=== PATIENT | male | born 1960 | race Caucasian/White ===

== ENCOUNTER 2020-01-08 00:47 | Emergency (ER) | payer BC, SELFPAY ==
[2020-01-08 00:47] VITALS: BP 134/75; PULSE 59; RESP 18; TEMP 36.9; O2SAT 97; BMI 32.3
--- NOTE | 2020-01-08 00:56 | CTR_ITS ---
PROCEDURE INFORMATION: Exam: CT Cervical Spine Without Contrast Exam date and time: 01/08/2020 1:00 AM Age: 59 years old Clinical indication: Neck pain and other: Lt arm pain TECHNIQUE: Imaging protocol: Computed tomography images of the cervical spine without contrast. Radiation optimization: All CT scans at this facility use at least one of these dose optimization techniques: automated exposure control; mA and/or kV adjustment per patient size (includes targeted exams where dose is matched to clinical indication); or iterative reconstruction. COMPARISON: No relevant prior studies available. RADIATION DOSE METRICS: Total DLP (mGy-cm): 925.13 FINDINGS: Vertebrae: No acute fracture. Normal alignment. C2-C3: No disc protrusion, canal stenosis or neural foraminal narrowing. C3-C4: No disc protrusion or canal stenosis. Mild left neural foraminal narrowing is appreciated secondary to left uncovertebral hypertrophy. C4-C5: No disc protrusion, canal stenosis or neural foraminal narrowing. C5-C6: No disc protrusion, canal stenosis or neural foraminal narrowing. C6-C7: No disc protrusion, canal stenosis or neural foraminal narrowing. C7-T1: No disc protrusion, canal stenosis or neural foraminal narrowing. Soft tissues: Unremarkable. Lungs: Lung apices are normal. CT/CT cervical spin wo con* [id number] IMPRESSION: No cervical spine fracture. Mild left neural foraminal narrowing is present at C3-C4. Radiation Dose CTDIVOL = (mGy): DLP = 925.13 (mGy-cm)
--- NOTE | 2020-01-08 00:56 | XR_ITS ---
WS: [id number] Portable AP upright chest, 01/08/2020, 0108 hours. Clinical Data: TIA symptoms Comparison: None Findings: No nodules, masses or effusions are seen. The heart is enlarged. The pulmonary vascularity is not increased. No pneumonia or pneumothorax is seen. Monitor leads are on the chest wall. XR/XR chest 1V portable [id number] Impression: Cardiomegaly.
--- NOTE | 2020-01-08 00:56 | CTR_ITS ---
PROCEDURE INFORMATION: Exam: CT Head Without Contrast Exam date and time: 01/08/2020 1:00 AM Age: 59 years old Clinical indication: Weakness, extremity; Left; Additional info: Left arm numbness TECHNIQUE: Imaging protocol: Computed tomography of the head without contrast. Radiation optimization: All CT scans at this facility use at least one of these dose optimization techniques: automated exposure control; mA and/or kV adjustment per patient size (includes targeted exams where dose is matched to clinical indication); or iterative reconstruction. COMPARISON: CT head wo con* [id number] 08/28/2018 10:55 AM RADIATION DOSE METRICS: Total DLP (mGy-cm): 872.58 FINDINGS: Brain: Normal. No hemorrhage or CT evidence of acute infarction is seen. No mass effect. Ventricles: Normal. No ventriculomegaly. Bones/joints: Unremarkable. No acute fracture. Sinuses: Visualized sinuses are unremarkable. No fluid levels. Mastoid air cells: Visualized mastoid air cells are well aerated. Soft tissues: Unremarkable. CT/CT head wo con* [id number] IMPRESSION: No acute intracranial abnormality. Radiation Dose CTDIVOL = (mGy): DLP = 872.58 (mGy-cm)
--- NOTE | 2020-01-08 01:09 | W.ED.EXTPRO ---
HPI - Extremity Problem General: Chief complaint: Extremity Injury, Upper Stated complaint: ARM PAIN Time Seen by Provider: 01/08/20 00:48 Source: patient and EMS Mode of arrival: EMS Limitations: no limitations History of Present Illness: HPI Narrative: Octavio is a 59-year-old male who comes in with left arm pain and numbness and numbness across his forehead. Patient states he was getting ready to go to bed when he had the abrupt onset of pain that was sharp in nature coming from his left shoulder radiating down to his left elbow. It did not matter what he did with his arm the pain persisted. He then developed some tingling in his left hand and then tingling across his forehead. He took 3 baby aspirin and called EMS. Patient states that he had a TIA approximately 1 year ago. By the time he reached here to the hospital his left arm paresthesias and pain is gone and he states the tingling across both sides of his forehead is almost completely gone. He denies any weakness, speech disturbance, leg weakness or confusion. He is unaware of anything that made his symptoms better or worse while they were going on. He denies any other complaints or concerns. Patient does relate that he did have surgery on that shoulder for a biceps tendon reattachment. He will get pains in this area from time to time. Patient denies any chest pain or shortness of breath. Associated symptoms: Deny chest pain, fever(s) or rash Review of Systems Const: Denies: fever(s), chills, body aches, fatigue, malaise or diaphoresis Eyes: Denies: change in vision, blurry vision, photophobia, eye discomfort, eye discharge or eye redness ENMT: Denies: throat pain, odynophagia, hoarseness, swelling of lips/tongue, ear or mastoid pain, ear discharge, change in hearing or nasal discharge Card: Denies: chest pain, palpitations, irregular heart rhythm, edema, lightheadedness, syncope, pre-syncope, dyspnea on exertion or orthopnea Resp: Denies: dyspnea, productive cough, non-productive cough, wheezing, hemoptysis or chest congestion GI: Denies: abdominal pain, nausea, vomiting, hematemesis, coffee ground emesis, heartburn, diarrhea, constipation, GI cramping, hematochezia or melena : Denies: flank pain, dysuria, urinary frequency, urinary urgency or hematuria Musc: Reports: extremity pain; Denies: neck pain, back pain, extremity swelling, joint pain, joint swelling, joint redness, joint warmth or joint stiffness Skin/Breast: Denies: rash, pruritus, erythema or skin tenderness Neuro: Reports: numbness in extremities (Described as paresthesias); Denies: headache(s), weakness in extremities, sensory changes, lack of coordination, difficulty walking, dizziness, vertigo, confusion, Slurred speech present or seizure-like activity Reinier/Lymph: Denies: easy bruising, easy bleeding, petechiae, purpura or enlarged lymph nodes All/Imm: Denies: urticaria, throat swelling, tongue swelling, facial swelling or acute wheezing PFSH ED PFSH: Medical History Hypercholesteremia Hypertension Surgical History History of surgical removal of testicle S/P shoulder surgery With bicep reattachment, left Family History Other Cancer Myocardial infarction Social History Smoking and tobacco status: current every day smoker cigars Alcohol intake: unknown Physical Exam Const: COMMON NORMALS: no acute distress, patient oriented x3, no limitations, healthy appearing and well nourished GENERAL APPEARANCE: cooperative, well kempt and well developed HENMT: COMMON NORMALS: normocephalic, atraumatic, external ears normal, EAC's normal and Normal external nose present HEAD & SCALP: normal to inspection, normocephalic and atraumatic FACE & SINUS: normal facial exam and face symmetric NOSE: Normal external nose present and Normal nares present EXTERNAL EAR: Yes external ears normal EXTERNAL AUDITORY CANAL: EAC's normal MOUTH: Normal oral and palatal mucosa present, lip normal and tongue normal Eye: COMMON NORMALS: Equal, round and reactive pupils present and conjunctivae normal GENERAL EYE: appearance normal, both eyes and all related structures ALIGNMENT: Yes alignment normal PERIORBITAL: periorbital findings normal EYELID: eyelids normal CONJUNCTIVA: Yes conjunctivae normal SCLERA: sclerae normal PUPIL: Yes Equal, round and reactive pupils present Neck/C-Spine: COMMON NORMALS: full ROM, no lymphadenopathy, supple, no meningeal signs and no JVD GENERAL: Yes normal visual inspection and Yes trachea midline Chest: COMMONS NORMALS: normal inspection of the chest and normal palpation of entire chest wall Resp: COMMON NORMALS: normal respiratory effort, No retractions, No use of accessory muscles and clear to auscultation bilaterally EFFORT & INSPECTION: Yes able to speak in complete sentences and Yes symmetric chest movement AUSCULTATION: clear to auscultation bilaterally, no crackles, no rales, no rhonchi and no wheezes Cardio: COMMON NORMALS: no JVD, regular rate, regular rhythm, S1 normal heart sound present and S2 normal heart sound present RATE: regular rate RHYTHM: regular rhythm HEART SOUNDS: S1 normal heart sound present, S2 normal heart sound present, no click, no gallops, no murmurs, no rubs and abnormal split S2 GI: COMMON NORMALS: Soft to palpation and No hepatosplenomegaly present PALPATION: Yes Soft to palpation, No Tenderness to palpation present (GI), No Guarding due to palpation present (GI), No Rigid due to palpation, Yes No hepatosplenomegaly present, No Hernia present, No Palpable mass present and No Pulsatile mass present : COMMON NORMALS: Yes no CVA tenderness BLADDER/KIDNEY EXAM: Yes no CVA tenderness Back/Pelvis: COMMON NORMALS: no CVA tenderness, thoracic and lumbar spine normal to inspection, no thoracic nor lumbar tenderness and thoraco-lumbar ROM normal Extremity: COMMON NORMALS: normal to inspection, full ROM, capillary refill normal, no joint enlargement, no clubbing, cyanosis or edema and no calf tenderness Neuro: COMMON NORMALS: patient oriented x3, CN's II-XII intact bilaterally, moves all extremities, no focal motor deficits and no sensory deficits noted MENINGEAL SIGNS: Yes no meningeal signs SPEECH: speech normal Psych: COMMON NORMALS: mental status grossly normal, Normal thought process present, cooperative, normal affect, speech normal and activity/motor behavior normal APPEARANCE: Yes well kempt SPEECH: Yes normal speech THOUGHT PROCESS: Normal thought process present Skin: COMMON NORMALS: no rashes or lesions noted, turgor normal, no jaundice, no petechiae and no mottling GENERAL SKIN EXAM: no rashes or lesions noted and turgor normal Course ED course: 241 -I reviewed with the patient the results of all his CT scans and laboratory work. It is unclear at this time if this was a atypical TIA, cardiac type pain or musculoskeletal pain. Currently he states he only has a twinge of pain in the area below his left scapula. The patient declines to stay for cardiac rule out and further work-up for TIA causes. He does agree to follow-up with Dr. Betancourt as outpatient in their TIA clinic. I will go ahead and do a CTA of his head and neck while he is here to help expedite information gathering when he is evaluated there. Vital Signs: Vital signs: Vital Signs Temperature 98.0 F 01/08/20 03:16 Pulse Rate 54 L 01/08/20 03:16 Respiratory Rate 16 01/08/20 03:16 Blood Pressure 125/70 01/08/20 03:16 Pulse Oximetry 99 01/08/20 03:16 MDM - Extremity (Nontraumatic) MDM Narrative: Medical decision making narrative: Mr. Reyes is a 59-year-old male who comes in complaining of sharp left arm pain and tingling across his forehead. His symptoms resolved mostly prior to arrival here. They have completely resolved here in the ER. His NIH was 1 and then is 0 on repeat. I recommended and offered to keep the patient in the hospital as this was a difficult issue to discern as far as was this a cardiac symptom, a TIA or musculoskeletal complaint. I discussed with the patient at length the need to stay in the hospital for definitive care but he refused. He stated he had a started new job and wanted to get home and get back to his family as he needed to start this new job and training. I will set him up to follow-up in our TIA clinic through case management and also he wants to follow-up Dr. Valentin to discuss an outpatient stress test. Ultimately the patient understand he was a leaving against my advice and he was at risk of or severe permanent disability by doing so. The patient declines any further evaluation care at this time but did agree to take the Plavix increase his aspirin. The patient agrees to follow-up as directed or return here if needed. Medical Records: Attestation: I reviewed the patient's medical records. Medical records narrative: Medical records reviewed from . This is the encounter the patient states he was sent to the ER for TIA symptoms. Per review of the chart the patient had a normal CT at that time and was ultimately diagnosed with Eng's palsy. Lab Data: Attestation: I reviewed the patient's lab results. Labs: Lab Results 01/08/20 01/08/20 01/08/20 Range/Units 01:02 01:02 01:09 WBC 10.9 H (4.0-10.0) 10^3/ uL RBC 4.88 (4.1-5.3) 10^6/u L Hgb 15.2 (11.7-16.6) g/dL Hct 47.3 (42.0-52.0) % MCV 96.9 H (80-94) fL MCH 31.1 (28.0-34.0) pg MCHC 32.1 (30.0-36.0) g/dL RDW 13.2 (12.1-15.1) % Plt Count 220 (130-400) 10^3/c mm MPV 10.0 (7.4-10.4) fL Neut % (Auto) 50.1 % Lymph % (Auto) 39.3 % Loup % (Auto) 7.8 % Eos % (Auto) 1.6 % Baso % (Auto) 0.7 % Neut # (Auto) 5.47 (1.8-7.7) 10^3/u L Lymph # (Auto) 4.3 (0.8-4.8) 10^3/u L Loup # (Auto) 0.9 (0.2-0.9) 10^3/u L Eos # (Auto) 0.2 (0.0-0.8) 10^3/u L Baso # (Auto) 0.1 (0.0-0.1) 10^3/u L Nucleated RBC % (a uto) 0 % Nucleated RBCs # 0.0 /100WBC PT (12.1-14.9) SECO NDS INR (0.8-1.2) APTT (23.9-36.7) SECO NDS Sodium (136-145) mmol/L Potassium (3.5-5.1) mmol/L Chloride (98-107) mmol/L Carbon Dioxide (22-29) mmol/L Anion Gap (5-19) BUN (8-23) mg/dL Creatinine (0.7-1.2) mg/dL GFR Calculation (90-130) mL/min Glucose (65-115) mg/dL Calculated Osmolal ity (285-295) mOsm/k g Calcium (8.5-10.5) mg/dL Magnesium (1.7-2.3) mg/dL Total Bilirubin (0.15-1.2) mg/dL AST (0-40) U/L ALT (0-41) U/L Alkaline Phosphata se (40-130) IU/L Troponin T Baselin e (0-15) ng/L Troponin T 120 Min tolowa dee-ni' (0-15) ng/L Delta Troponin T (0-10) ABS# Total Protein (6.6-8.7) g/dL Albumin (3.5-5.2) g/dL Globulin (1.3-4.6) g/dL Urine Color Yellow (Yellow) Urine Appearance Clear (CLEAR) Urine pH 6 (5-7) Ur Specific Gravit y 1.015 (1.005-1.030) Urine Protein Neg (Negative) Urine Glucose (UA) Norm (Normal) Urine Ketones Negative (Negative) Urine Blood Trace H (Negative) Urine Nitrate Negative (Negative) Urine Bilirubin Neg (NEGATIVE) Urine Urobilinogen Norm (Negative) mg/dL Ur Leukocyte Terri ase Negative (Negative) Urine RBC Rare (0-2) /hpf Urine WBC Rare (0-5) /hpf Ur Squamous Epith Cells 0-4 H (0-5) Amorphous Sediment Not Reportable Urine Bacteria Trace (NONE) Urine Opiates Scre en Negative (Negative) ng/mL Ur Barbiturates Sc reen Negative (Negative) ng/mL Ur Phencyclidine S crn Negative (Negative) ng/mL Ur Amphetamines Sc reen Negative (Negative) ng/mL U Benzodiazepines Scrn Negative (Negative) ng/mL Urine Cocaine Scre en Negative (Negative) ng/mL U Marijuana (THC) Screen Negative (Negative) ng/mL Ethyl Alcohol (0-10) mg/dL 01/08/20 01/08/20 01/08/20 Range/Units 01:09 01:09 01:09 WBC (4.0-10.0) 10^3/ uL RBC (4.1-5.3) 10^6/u L Hgb (11.7-16.6) g/dL Hct (42.0-52.0) % MCV (80-94) fL MCH (28.0-34.0) pg MCHC (30.0-36.0) g/dL RDW (12.1-15.1) % Plt Count (130-400) 10^3/c mm MPV (7.4-10.4) fL Neut % (Auto) % Lymph % (Auto) % Loup % (Auto) % Eos % (Auto) % Baso % (Auto) % Neut # (Auto) (1.8-7.7) 10^3/u L Lymph # (Auto) (0.8-4.8) 10^3/u L Loup # (Auto) (0.2-0.9) 10^3/u L Eos # (Auto) (0.0-0.8) 10^3/u L Baso # (Auto) (0.0-0.1) 10^3/u L Nucleated RBC % (a uto) % Nucleated RBCs # /100WBC PT 12.10 (12.1-14.9) SECO NDS INR 0.87 (0.8-1.2) APTT 28.9 (23.9-36.7) SECO NDS Sodium 136 (136-145) mmol/L Potassium 4.4 (3.5-5.1) mmol/L Chloride 106 (98-107) mmol/L Carbon Dioxide 23 (22-29) mmol/L Anion Gap 11.4 (5-19) BUN 13 (8-23) mg/dL Creatinine 1.0 (0.7-1.2) mg/dL GFR Calculation 76.0 L (90-130) mL/min Glucose 102 (65-115) mg/dL Calculated Osmolal ity 278 L (285-295) mOsm/k g Calcium 9.1 (8.5-10.5) mg/dL Magnesium 2.0 (1.7-2.3) mg/dL Total Bilirubin 0.3 (0.15-1.2) mg/dL AST 20 (0-40) U/L ALT 19 (0-41) U/L Alkaline Phosphata se 81 (40-130) IU/L Troponin T Baselin e 7 (0-15) ng/L Troponin T 120 Min tolowa dee-ni' (0-15) ng/L Delta Troponin T (0-10) ABS# Total Protein 6.6 (6.6-8.7) g/dL Albumin 4.3 (3.5-5.2) g/dL Globulin 2.3 (1.3-4.6) g/dL Urine Color (Yellow) Urine Appearance (CLEAR) Urine pH (5-7) Ur Specific Gravit y (1.005-1.030) Urine Protein (Negative) Urine Glucose (UA) (Normal) Urine Ketones (Negative) Urine Blood (Negative) Urine Nitrate (Negative) Urine Bilirubin (NEGATIVE) Urine Urobilinogen (Negative) mg/dL Ur Leukocyte Terri ase (Negative) Urine RBC (0-2) /hpf Urine WBC (0-5) /hpf Ur Squamous Epith Cells (0-5) Amorphous Sediment Urine Bacteria (NONE) Urine Opiates Scre en (Negative) ng/mL Ur Barbiturates Sc reen (Negative) ng/mL Ur Phencyclidine S crn (Negative) ng/mL Ur Amphetamines Sc reen (Negative) ng/mL U Benzodiazepines Scrn (Negative) ng/mL Urine Cocaine Scre en (Negative) ng/mL U Marijuana (THC) Screen (Negative) ng/mL Ethyl Alcohol < 10 (0-10) mg/dL 01/08/20 Range/Units 03:00 WBC (4.0-10.0) 10^3/ uL RBC (4.1-5.3) 10^6/u L Hgb (11.7-16.6) g/dL Hct (42.0-52.0) % MCV (80-94) fL MCH (28.0-34.0) pg MCHC (30.0-36.0) g/dL RDW (12.1-15.1) % Plt Count (130-400) 10^3/c mm MPV (7.4-10.4) fL Neut % (Auto) % Lymph % (Auto) % Loup % (Auto) % Eos % (Auto) % Baso % (Auto) % Neut # (Auto) (1.8-7.7) 10^3/u L Lymph # (Auto) (0.8-4.8) 10^3/u L Loup # (Auto) (0.2-0.9) 10^3/u L Eos # (Auto) (0.0-0.8) 10^3/u L Baso # (Auto) (0.0-0.1) 10^3/u L Nucleated RBC % (a uto) % Nucleated RBCs # /100WBC PT (12.1-14.9) SECO NDS INR (0.8-1.2) APTT (23.9-36.7) SECO NDS Sodium (136-145) mmol/L Potassium (3.5-5.1) mmol/L Chloride (98-107) mmol/L Carbon Dioxide (22-29) mmol/L Anion Gap (5-19) BUN (8-23) mg/dL Creatinine (0.7-1.2) mg/dL GFR Calculation (90-130) mL/min Glucose (65-115) mg/dL Calculated Osmolal ity (285-295) mOsm/k g Calcium (8.5-10.5) mg/dL Magnesium (1.7-2.3) mg/dL Total Bilirubin (0.15-1.2) mg/dL AST (0-40) U/L ALT (0-41) U/L Alkaline Phosphata se (40-130) IU/L Troponin T Baselin e (0-15) ng/L Troponin T 120 Min tolowa dee-ni' 7.59 (0-15) ng/L Delta Troponin T 0.59 (0-10) ABS# Total Protein (6.6-8.7) g/dL Albumin (3.5-5.2) g/dL Globulin (1.3-4.6) g/dL Urine Color (Yellow) Urine Appearance (CLEAR) Urine pH (5-7) Ur Specific Gravit y (1.005-1.030) Urine Protein (Negative) Urine Glucose (UA) (Normal) Urine Ketones (Negative) Urine Blood (Negative) Urine Nitrate (Negative) Urine Bilirubin (NEGATIVE) Urine Urobilinogen (Negative) mg/dL Ur Leukocyte Terri ase (Negative) Urine RBC (0-2) /hpf Urine WBC (0-5) /hpf Ur Squamous Epith Cells (0-5) Amorphous Sediment Urine Bacteria (NONE) Urine Opiates Scre en (Negative) ng/mL Ur Barbiturates Sc reen (Negative) ng/mL Ur Phencyclidine S crn (Negative) ng/mL Ur Amphetamines Sc reen (Negative) ng/mL U Benzodiazepines Scrn (Negative) ng/mL Urine Cocaine Scre en (Negative) ng/mL U Marijuana (THC) Screen (Negative) ng/mL Ethyl Alcohol (0-10) mg/dL Imaging Data^: CT Head: Radiologist's impression: [address] [address] [address] Scan Report Signed Patient: Octavio Reyes Unit #: [id number] : 1960 Age/Sex: 59 / M ADM Date: 01/08/20 Loc: ER Room/Bed: Attending Dr: Ordering Provider/Ordering MD: Freda Jin DO Date of Service: 01/08/20 Procedure(s): CT head wo con* [id number] Accession Number(s): [id number] Report Number: [id number] PROCEDURE INFORMATION: Exam: CT Head Without Contrast Exam date and time: 01/08/2020 1:00 AM Age: 59 years old Clinical indication: Weakness, extremity; Left; Additional info: Left arm numbness TECHNIQUE: Imaging protocol: Computed tomography of the head without contrast. Radiation optimization: All CT scans at this facility use at least one of these dose optimization techniques: automated exposure control; mA and/or kV adjustment per patient size (includes targeted exams where dose is matched to clinical indication); or iterative reconstruction. COMPARISON: CT head wo con* [id number] 08/28/2018 10:55 AM RADIATION DOSE METRICS: Total DLP (mGy-cm): 872.58 FINDINGS: Brain: Normal. No hemorrhage or CT evidence of acute infarction is seen. No mass effect. Ventricles: Normal. No ventriculomegaly. Bones/joints: Unremarkable. No acute fracture. Sinuses: Visualized sinuses are unremarkable. No fluid levels. Mastoid air cells: Visualized mastoid air cells are well aerated. Soft tissues: Unremarkable. CT/CT head wo con* [id number] IMPRESSION: No acute intracranial abnormality. Radiation Dose CTDIVOL = (mGy): DLP = 872.58 (mGy-cm) Dictated By: Bryce Hall MD Signed By: Bryce Hall MD Signed Date/Time: 01/08/20209 DD/ 7 CT Cervical Spine: Radiologist's impression: [address] [place] [address] CT Scan Report Signed Patient: Octavio Reyes Unit #: [id number] : 1960 Age/Sex: 59 / M ADM Date: 01/08/20 Loc: ER Room/Bed: Attending Dr: Ordering Provider/Ordering MD: Freda Jin DO Date of Service: 01/08/20 Procedure(s): CT cervical spin wo con* [id number] Accession Number(s): [id number] Report Number: [id number] PROCEDURE INFORMATION: Exam: CT Cervical Spine Without Contrast Exam date and time: 01/08/2020 1:00 AM Age: 59 years old Clinical indication: Neck pain and other: Lt arm pain TECHNIQUE: Imaging protocol: Computed tomography images of the cervical spine without contrast. Radiation optimization: All CT scans at this facility use at least one of these dose optimization techniques: automated exposure control; mA and/or kV adjustment per patient size (includes targeted exams where dose is matched to clinical indication); or iterative reconstruction. COMPARISON: No relevant prior studies available. RADIATION DOSE METRICS: Total DLP (mGy-cm): 925.13 FINDINGS: Vertebrae: No acute fracture. Normal alignment. C2-C3: No disc protrusion, canal stenosis or neural foraminal narrowing. C3-C4: No disc protrusion or canal stenosis. Mild left neural foraminal narrowing is appreciated secondary to left uncovertebral hypertrophy. C4-C5: No disc protrusion, canal stenosis or neural foraminal narrowing. C5-C6: No disc protrusion, canal stenosis or neural foraminal narrowing. C6-C7: No disc protrusion, canal stenosis or neural foraminal narrowing. C7-T1: No disc protrusion, canal stenosis or neural foraminal narrowing. Soft tissues: Unremarkable. Lungs: Lung apices are normal. CT/CT cervical spin wo con* [id number] IMPRESSION: No cervical spine fracture. Mild left neural foraminal narrowing is present at C3-C4. Radiation Dose CTDIVOL = (mGy): DLP = 925.13 (mGy-cm) Dictated By: Bryce Hall MD Signed By: Bryce Hall MD Signed Date/Time: 01/08/20212 DD/ 1 CTA Head and Neck: Radiologist's impression: [facility] [address] [place] [address] CT Scan Report Signed Patient: Octavio Reyes Unit #: [id number] : 1960 Age/Sex: 59 / M ADM Date: 01/08/20 Loc: ER Room/Bed: Attending Dr: Ordering Provider/Ordering MD: Freda Jin DO Date of Service: 01/08/20 Procedure(s): CT angio headneck* [id number] Accession Number(s): [id number] Report Number: [id number] PROCEDURE INFORMATION: Exam: CT Angiography Head With Contrast Exam date and time: 01/08/2020 2:45 AM Age: 59 years old Clinical indication: Numbness and weakness; Additional info: TIA symptoms TECHNIQUE: Imaging protocol: Computed tomography angiography of the head with intravenous contrast. 3D rendering: MIP and/or 3D reconstructed images were created by the technologist. Radiation optimization: All CT scans at this facility use at least one of these dose optimization techniques: automated exposure control; mA and/or kV adjustment per patient size (includes targeted exams where dose is matched to clinical indication); or iterative reconstruction. Contrast material: OMNI 350; Contrast volume: 95 ml; Contrast route: INTRAVENOUS (IV); COMPARISON: CT head wo con* [id number] 2020-01-08 01:20 RADIATION DOSE METRICS: Total DLP (mGy-cm): 2619 FINDINGS: ANTERIOR CIRCULATION: Right internal carotid artery: Unremarkable. Intracranial segment is patent with no significant stenosis. No aneurysm. Right middle cerebral artery: Unremarkable. No occlusion or significant stenosis. No aneurysm. Right anterior cerebral artery: Unremarkable. No occlusion or significant stenosis. No aneurysm. Left internal carotid artery: Unremarkable. Intracranial segment is patent with no significant stenosis. No aneurysm. Left middle cerebral artery: Unremarkable. No occlusion or significant stenosis. No aneurysm. Left anterior cerebral artery: Unremarkable. No occlusion or significant stenosis. No aneurysm. POSTERIOR CIRCULATION: Right vertebral artery: Unremarkable. No occlusion or significant stenosis. No aneurysm. Left vertebral artery: Unremarkable. No occlusion or significant stenosis. No aneurysm. Basilar artery: Unremarkable. No occlusion or significant stenosis. No aneurysm. Right posterior cerebral artery: Unremarkable. No occlusion or significant stenosis. No aneurysm. Left posterior cerebral artery: Unremarkable. No occlusion or significant stenosis. No aneurysm. IMPRESSION: No large vessel stenosis or occlusion. PROCEDURE INFORMATION: Exam: CT Angiography Neck With Contrast Exam date and time: 01/08/2020 2:45 AM Age: 59 years old Clinical indication: Numbness and weakness; Additional info: TIA symptoms TECHNIQUE: Imaging protocol: Computed tomography angiography of the neck with intravenous contrast. 3D rendering: MIP and/or 3D reconstructed images were created by the technologist. Radiation optimization: All CT scans at this facility use at least one of these dose optimization techniques: automated exposure control; mA and/or kV adjustment per patient size (includes targeted exams where dose is matched to clinical indication); or iterative reconstruction. Contrast material: OMNI 350; Contrast volume: 95 ml; Contrast route: INTRAVENOUS (IV); COMPARISON: CT head wo con* [id number] 2020-01-08 01:20 RADIATION DOSE METRICS: Total DLP (mGy-cm): 2619 FINDINGS: Right common carotid artery: Mild atherosclerotic plaque in the predominately distal right common carotid artery and the bifurcation. Right internal carotid artery: No stenosis of the extracranial segment. No dissection or occlusion. Right external carotid artery: No occlusion or stenosis of the origin. Right vertebral artery: No stenosis. No dissection or occlusion. Left common carotid artery: No stenosis. No dissection or occlusion. Left internal carotid artery: No stenosis of the extracranial segment. No dissection or occlusion. Left external carotid artery: No occlusion or stenosis of the origin. Left vertebral artery: No stenosis. No dissection or occlusion. Bones/joints: No acute fracture. Soft tissues: Normal. No significant soft tissue swelling. CT/CT angio headneck* [id number] IMPRESSION: No acute abnormality. REFERENCES: NASCET CRITERIA. The degree of internal carotid artery stenosis is based on NASCET criteria. Normal is no stenosis. Mild is less than 50% stenosis. Moderate is 50-69% stenosis. Severe is 70% to 99% stenosis. Total occlusion is no detectable patent lumen. Radiation Dose CTDIVOL = (mGy): DLP = 2619 2619 (mGy-cm) Dictated By: Jr Molina MD Signed By: Jr Molina MD Signed Date/Time: 01/08/20354 DD/ 3 EKG Data^: EKG 1: Attestation: I personally reviewed and interpreted this EKG as follows: EKG interpretation date: 01/08/20 EKG interpretation time: 00:56 Interpretation: Sinus bradycardia at 53 beats a minute, no ST or T wave changes. No blocks, normal intervals. Discharge Plan Discharge Patient Disposition: Home Clinical Impression: TIA (transient ischemic attack), Cervical radiculopathy Chest pain Qualifiers: Chest pain type: unspecified Qualified Code(s): R07.9 - Chest pain, unspecified Condition: Stable Prescriptions: New Plavix 75 mg tablet 75 mg PO DAILY Qty: 30 RF: 0 No Action hydralazine 10 mg tablet 10 mg PO Q4H PRNRF: 0 aspirin [Adult Low Dose Aspirin] 81 mg tablet,delayed release (DR/EC) 81 mg PO DAILY RF: 0 grape seed extract 100 mg capsule PO RF: 0 ibuprofen 800 mg tablet 800 mg PO Q8H PRNRF: 0 lisinopril 20 mg tablet 20 mg PO BID RF: 0 metoprolol tartrate 25 mg tablet 12.5 mg PO BID RF: 0 pravastatin 10 mg tablet 10 mg PO .at HS Qty: 90 RF: 3 Discharge Orders: Discharge Order (Routine); Ordered 01/08/20 Ordered By: Freda Jin Referrals: Prema Betancourt MD [Physician] - 1-3 days Charito Valentin MD [Primary Care Provider] - 1-3 days Discharge Diet: Cardiac Discharge Activity: Increase activity as tolerated Patient Instructions: Transient Ischemic Attack (ED), Chest Pain (ED), Cervical Radiculopathy (ED) Activity Restrictions/Additional Instructions: Please return to the ER immediately for any of the signs or symptoms listed on your discharge instruction sheets, worsening/changing of your symptoms, you are not getting better as quickly as expected, or for ANY other cause or concerns. You are leaving without complete evaluation and care and against my advice. I have recommended to admission to the hospital for further cardiac evaluation as well as evaluation for possible stroke but you have declined. If you change your mind, your symptoms return, you develop new symptoms, develop chest pain, shortness of breath, or have any other concerns or simply change your mind you are more than welcome to return here at any time for further evaluation and care. Our case management team will contact you to set you up for your outpatient appointment with Dr. Betancourt for further evaluation of your TIA. Call your doctor as soon as possible for recheck of your left arm pain and to see if she would like to schedule you for an outpatient stress test. Be certain to take a full-strength aspirin, 324 mg or 4 baby aspirins daily along with this new medication. Discharge Date/Time: 01/08/20 04:59 Coding Level of Care Code ED Warp Doffer for Demarco Bryant Exam Comprehensive NIH stroke score NIHSS Level Of Consciousness - 1a: 0 Level Of Consciousness Questions - 1b: Both Correct Level Of Consciousness Commands - 1c: Both Correct Best Gaze - 2: Normal Visual Solano - 3: No Visual Loss Facial Palsy - 4: Normal Motor Arm Right - 5: No Drift Motor Arm Left - 5: No Drift Motor Leg Right - 6: No Drift Motor Leg Left - 6: No Drift Limb Ataxia - 7: Absent Sensory - 8: Mild To Moderate Loss Best Language - 9: No Aphasia Dysarthia - 10: Normal Extinction And Inattention - 11: 0 Score Total Score: 1
[2020-01-08 01:14] LABS: Basophils # 0.1 10^3/uL (0.0-0.1); Basophils % 0.7 %; Eosinophils # 0.2 10^3/uL (0.0-0.8); Eosinophils % 1.6 %; Hematocrit 47.3 % (42.0-52.0); Hemoglobin 15.2 g/dL (11.7-16.6); Lymphocytes # 4.3 10^3/uL (0.8-4.8); Lymphocytes % 39.3 %; Mean Corpuscular HGB Conc 32.1 g/dL (30.0-36.0); Mean Corpuscular Hemoglobin 31.1 pg (28.0-34.0); Mean Corpuscular Volume 96.9 fL (80-94); Monocytes # 0.9 10^3/uL (0.2-0.9); Monocytes % 7.8 %; Neutrophils # 5.47 10^3/uL (1.8-7.7); Neutrophils % 50.1 %; Nucleated Red Blood Cells % 0 %; Platelet Count 220 10^3/cmm (130-400); Red Blood Count 4.88 10^6/uL (4.1-5.3); Red Cell Distribution Width 13.2 % (12.1-15.1); White Blood Count 10.9 10^3/uL (4.0-10.0)
[2020-01-08 01:30] LABS: INR 0.87 (0.8-1.2)
[2020-01-08 01:31] LABS: Partial Thromboplastin Time 28.9 SECONDS (23.9-36.7)
[2020-01-08 01:32] LABS: Alanine Aminotransferase 19 U/L (0-41); Albumin Level 4.3 g/dL (3.5-5.2); Alkaline Phosphatase 81 IU/L (40-130); Anion Gap 11.4 (5-19); Aspartate Amino Transferase 20 U/L (0-40); Blood Urea Nitrogen 13 mg/dL (8-23); Calcium 9.1 mg/dL (8.5-10.5); Carbon Dioxide 23 mmol/L (22-29); Chloride 106 mmol/L (98-107); Globulin 2.3 g/dL (1.3-4.6); Glucose 102 mg/dL (65-115); Osmolality Calculated 278 mOsm/kg (285-295); Potassium 4.4 mmol/L (3.5-5.1); Sodium 136 mmol/L (136-145); Total Bilirubin 0.3 mg/dL (0.15-1.2); Total Protein 6.6 g/dL (6.6-8.7)
[2020-01-08 01:35] LABS: Troponin(5th) Baseline 7 ng/L (0-15)
[2020-01-08 01:36] LABS: Alcohol Level < 10 mg/dL (0-10)
[2020-01-08 01:37] LABS: Amphetamines Screen Urine Negative (Negative); Barbiturates Screen Urine Negative (Negative); Benzodiazepines Screen Urine Negative (Negative); Cocaine Screen Urine Negative (Negative); Opiate Screen Urine Negative (Negative); PCP Screen Urine Negative (Negative); THC Screen Urine Negative (Negative)
[2020-01-08 01:55] VITALS: BP 117/65; PULSE 52; RESP 16; O2SAT 100
[2020-01-08 01:59] LABS: Slide Review Slide Review Perform
[2020-01-08 02:00] LABS: Bacteria Urine TRACE; Bilirubin Urine Neg (NEGATIVE); Blood Urine Trace (Negative); Glucose Urine UA Norm (Normal); Ketones Urine Negative (Negative); Leukocyte Esterase Urine Negative (Negative); Nitrate Urine Negative (Negative); Protein Urine Neg (Negative); RBC Urine RARE /hpf (0-2); Specific Gravity, Urine 1.015 (1.005-1.030); Squamous Epithelial Cell Urine 0-4 (0-5); Urine Appearance Clear (CLEAR); Urine Color Yellow (Yellow); Urobilinogen Urine Norm (Negative); WBC Urine RARE /hpf (0-5); pH Urine 6 (5-7)
--- NOTE | 2020-01-08 02:41 | CTR_ITS ---
PROCEDURE INFORMATION: Exam: CT Angiography Head With Contrast Exam date and time: 01/08/2020 2:45 AM Age: 59 years old Clinical indication: Numbness and weakness; Additional info: TIA symptoms TECHNIQUE: Imaging protocol: Computed tomography angiography of the head with intravenous contrast. 3D rendering: MIP and/or 3D reconstructed images were created by the technologist. Radiation optimization: All CT scans at this facility use at least one of these dose optimization techniques: automated exposure control; mA and/or kV adjustment per patient size (includes targeted exams where dose is matched to clinical indication); or iterative reconstruction. Contrast material: OMNI 350; Contrast volume: 95 ml; Contrast route: INTRAVENOUS (IV); COMPARISON: CT head wo con* [id number] 2020-01-08 01:20 RADIATION DOSE METRICS: Total DLP (mGy-cm): 2619 FINDINGS: ANTERIOR CIRCULATION: Right internal carotid artery: Unremarkable. Intracranial segment is patent with no significant stenosis. No aneurysm. Right middle cerebral artery: Unremarkable. No occlusion or significant stenosis. No aneurysm. Right anterior cerebral artery: Unremarkable. No occlusion or significant stenosis. No aneurysm. Left internal carotid artery: Unremarkable. Intracranial segment is patent with no significant stenosis. No aneurysm. Left middle cerebral artery: Unremarkable. No occlusion or significant stenosis. No aneurysm. Left anterior cerebral artery: Unremarkable. No occlusion or significant stenosis. No aneurysm. POSTERIOR CIRCULATION: Right vertebral artery: Unremarkable. No occlusion or significant stenosis. No aneurysm. Left vertebral artery: Unremarkable. No occlusion or significant stenosis. No aneurysm. Basilar artery: Unremarkable. No occlusion or significant stenosis. No aneurysm. Right posterior cerebral artery: Unremarkable. No occlusion or significant stenosis. No aneurysm. Left posterior cerebral artery: Unremarkable. No occlusion or significant stenosis. No aneurysm. IMPRESSION: No large vessel stenosis or occlusion. PROCEDURE INFORMATION: Exam: CT Angiography Neck With Contrast Exam date and time: 01/08/2020 2:45 AM Age: 59 years old Clinical indication: Numbness and weakness; Additional info: TIA symptoms TECHNIQUE: Imaging protocol: Computed tomography angiography of the neck with intravenous contrast. 3D rendering: MIP and/or 3D reconstructed images were created by the technologist. Radiation optimization: All CT scans at this facility use at least one of these dose optimization techniques: automated exposure control; mA and/or kV adjustment per patient size (includes targeted exams where dose is matched to clinical indication); or iterative reconstruction. Contrast material: OMNI 350; Contrast volume: 95 ml; Contrast route: INTRAVENOUS (IV); COMPARISON: CT head wo [facility]* [id number] 2020-01-08 01:20 RADIATION DOSE METRICS: Total DLP (mGy-cm): 2619 FINDINGS: Right common carotid artery: Mild atherosclerotic plaque in the predominately distal right common carotid artery and the bifurcation. Right internal carotid artery: No stenosis of the extracranial segment. No dissection or occlusion. Right external carotid artery: No occlusion or stenosis of the origin. Right vertebral artery: No stenosis. No dissection or occlusion. Left common carotid artery: No stenosis. No dissection or occlusion. Left internal carotid artery: No stenosis of the extracranial segment. No dissection or occlusion. Left external carotid artery: No occlusion or stenosis of the origin. Left vertebral artery: No stenosis. No dissection or occlusion. Bones/joints: No acute fracture. Soft tissues: Normal. No significant soft tissue swelling. CT/CT angio headneck* [id number] IMPRESSION: No acute abnormality. REFERENCES: NASCET CRITERIA. The degree of internal carotid artery stenosis is based on NASCET criteria. Normal is no stenosis. Mild is less than 50% stenosis. Moderate is 50-69% stenosis. Severe is 70% to 99% stenosis. Total occlusion is no detectable patent lumen. Radiation Dose CTDIVOL = (mGy): DLP = 2619~2619 (mGy-cm)
--- NOTE | 2020-01-08 02:57 | ECG_ITS ---
[facility] Test Date: 2020-01-08 Pat Name: Octavio Reyes Department: Room: Gender: Male Desk Clerk: : 1960 Requested By: Freda Morgan Order Number: [id number] Amarilis MD: Dora Daly M.D. Measurements Intervals [place] Rate: 50 P: 61 GA: 156 QRS: -2 QRSD: 97 T: 14 QT: 410 QTc: 375 Interpretive Statements SINUS BRADYCARDIA Compared to ECG 08/28/2018 11:09:20 Sinus rhythm no longer present Myocardial infarct finding no longer present Electronically Signed On 01-08-2020 21:24:03 CDT by Dora Daly M.D. [id number]
[2020-01-08 03:16] VITALS: BP 125/70; PULSE 54; RESP 16; TEMP 36.7; O2SAT 99
[2020-01-08] MEDS: iohexol 350 mg/mL 100 mL Btl IV (03:28)
[2020-01-08 03:33] LABS: Troponin 5 2HR 7.59 ng/L (0-15); Troponin 5 2HR Delta 0.59 ABS# (0-10)
[2020-01-08] MEDS: clopidogrel 75 mg Tablet PO (04:56)
--- NOTE | 2020-01-08 09:32 | DCPLANNER ---
Addendum entered by Leah Salinas 01/08/20 10:58: Patients returned therapeutic case manager phone call, gave her the appointment information. Original Note: senior software project manager had a message to schedule a follow up appointment for patient with Dr. Betancourt. senior software project manager called the office of Dr. Betancourt, spoke with Anabell. A follow up appointment was scheduled for Monday, January 13, 2020 at 3:30 with Gaudencio. senior software project manager called patient at [phone] and was unable to speak with patient at this time, and unable to leave a voicemail. senior software project manager called patients phone number [phone] and was able to leave a voicemail for patient or to call keycase assembler back for appointment information.
--- NOTE | 2020-02-11 13:13 | DCPLANNER ---
Patient had an appointment scheduled for 01.13.20 with Gaudencio Montes - patient did attend the appointment.
== END 2020-01-08 04:59 | disposition home or self-care (01) ==
PROVIDERS: Emergency Provider Emergency Medicine; PCP Family Medicine
DX: G45.9 Transient cerebral ischemic attack, unspecified (principal); M54.12 Radiculopathy, cervical region; R07.9 Chest pain, unspecified; Z79.82 Long term (current) use of aspirin; I10 Essential (primary) hypertension; F17.210 Nicotine dependence, cigarettes, uncomplicated
CPT/HCPCS: 12345; 36415; 70450; 70496; 70498; 71045; 72125; 80053; 80306; 80307; 81001; 83735; 84484; 85025; 85610; 85730; 93005; 99283; 99284; Q9967

== ENCOUNTER → 2020-01-13 14:53 | Outpatient (BNVA) | payer BC, SELFPAY | PROVIDERS: PCP Family Medicine; Referring Provider Emergency Medicine; Visit Provider Nurse Practitioner | DX: G45.9 Transient cerebral ischemic attack, unspecified (principal); I63.9 Cerebral infarction, unspecified; R51 Headache | CPT/HCPCS: 99204 ==

== ENCOUNTER 2020-01-27 09:22 | Outpatient (CLI) | payer BC, SELFPAY ==
--- NOTE | 2020-01-27 09:30 | MR_ITS ---
WS: [id number] MRI BRAIN WITH AND WITHOUT CONTRAST HISTORY: TIA/Headache COMPARISON: 01/08/2020 TECHNIQUE: Multiplanar imaging performed through the brain with Prohance 17 ml's IV. No acute infarcts are seen. Mishra-white matter differentiation is well preserved. No significant amoun t of chronic microvascular ischemic disease. There are very few scattered T2 FLAIR signal hyperintens ities. No prior infarct. Very minimal volume loss and atrophy. No susceptibility artifacts or prior lacunar infarcts. Ventricles and extra-axial spaces are normal. Clivus and pituitary gland are normal. Visualized posterior fossa and brainstem are also normal. Postcontrast images are negative for masses or vascular malformations. Mildly prominent soft tissues in the nasopharynx. On the postcontrast images there is mild nodularity along the posterior nasophary nx with peripheral enhancement. May be inflammatory polyps or inflammation of the adenoids. Neoplasm should be excluded. Dural venous sinuses are normal. Paranasal sinuses: Well aerated with no significant disease. Mastoid air cells: Normal. Calvarium and scalp: Normal. MR/MR head wo/w con [id number] IMPRESSION: 1. No intracranial mass or significant chronic microvascular ischemic disease. 2. No acute infarct. 3. Prominent soft tissue in the nasopharynx with mild peripheral enhancement. Recommend direct visualization by ENT. Early neoplasm should be excluded.
== END 2020-01-27 09:23 | disposition home or self-care (01) ==
LOC: RADSHAW 09:24
PROVIDERS: PCP Family Medicine; Visit Provider Nurse Practitioner
DX: G45.9 Transient cerebral ischemic attack, unspecified (principal); R51 Headache
CPT/HCPCS: 70553; A9579

== ENCOUNTER 2020-02-06 10:00 | Outpatient (CLI) | payer BC, SELFPAY ==
--- NOTE | 2020-02-06 10:15 | USCV_ITS ---
Octavio Reyes Age: 60 Gender: M : 1960 Exam Date: 02/06/2020 10:21 Ordering Phys: Gaudencio LearyP MSN AGACNP-BC Technologist: Kaylan Bustillo Exam Location: [facility] [place] Indication: TIA BP: 140 / 80 HR: 59 Rhythm: Sinus Technical Quality: Adequate MEASUREMENTS (Male / Female) Normal Values 2D ECHO LV Diastolic Diameter PLAX 5.9 cm 4.2 - 5.9 / 3.9 - 5.3 cm LV Systolic Diameter PLAX 4.2 cm LV Chamber Size 5.3 cm IVS Diastolic Thickness 0.9 cm 0.6 - 1.0 / 0.6 - 0.9 cm IVS Systolic Thickness 1.7 cm LVPW Diastolic Thickness 1.3 cm 0.6 - 1.0 / 0.6 - 0.9 cm LVPW Systolic Thickness 1.5 cm RV Chamber Size 3.7 cm LVOT Diameter 2.0 cm LV Ejection Fraction 2D Teich 54.5 % LV Ejection Fraction MOD 2C -21.0 % LV Ejection Fraction 2C AL -21.6 % LA Diameter 5.4 cm LA Width 4.0 cm LA Height 5.3 cm RA Width 4.4 cm RA Height 5.1 cm Aorta at Sinotubular Diameter 3.1 cm M-MODE LV Diastolic Diameter MM 5.9 cm 4.2 - 5.9 / 3.9 - 5.3 cm LV Systolic Diameter MM 3.8 cm LV Ejection Fraction MM Teich 63.4 % IVS Diastolic Thickness MM 1.4 cm 0.6 - 1.0 / 0.6 - 0.9 cm IVS Systolic Thickness MM 1.6 cm LVPW Diastolic Thickness MM 1.1 cm 0.6 - 1.0 / 0.6 - 0.9 cm LVPW Systolic Thickness MM 1.8 cm RV Diastolic Diameter MM 1.4 cm Aortic Annulus Diameter 3.1 cm LA Ao Ratio MM 1.7 MV E Point Septal Separation 0.2 cm DOPPLER AV Peak Velocity 160.0 cm/s LVOT Peak Velocity 84.0 cm/s AV Area Cont Eq vti 2.3 cm squared AV Area Cont Eq pk 1.7 cm squared MV Area PHT 3.2 cm squared Mitral E to A Ratio 1.4 MV E' Velocity 11.0 cm/s Mitral E to MV E' Ratio 8.1 Mitral E to LV E' Lateral Ratio 7.0 Mitral E to LV E' Septal Ratio 9.6 TR Peak Velocity 243.6 cm/s TR Peak Gradient 23.7 mmHg TR Mean Velocity 204.8 cm/s TR Mean Gradient 17.1 mmHg TR Velocity Time Integral 75.9 cm Right Atrial Pressure 3.0 mmHg Pulmonary Artery Systolic Pressu 26.7 mmHg PV Peak Velocity 71.0 cm/s RV Acceleration Time 0.1 s RV Ejection Time 0.3 s RV AcT/ET 0.5 FINDINGS Left Ventricle Normal left ventricular size, systolic function and wall thickness, with no regional wall motion abnormalities. Left ventricular ejection fraction is estimated at 60 %. Normal diastolic function. Right Ventricle Normal right ventricular size and systolic function. Right ventricular systolic pressure 26.7 mmHg. Right Atrium Normal right atrial size. Right atrial pressure estimated at 3 mm Hg. Left Atrium Normal left atrial size. Mitral Valve Structurally normal mitral valve. No mitral valve stenosis. Trace mitral valve regurgitation. Aortic Valve Probably trileaflet aortic valve. No aortic valve stenosis. No aortic valve regurgitation. Tricuspid Valve Structurally normal tricuspid valve. Trace tricuspid valve regurgitation. Pulmonic Valve Structurally normal pulmonic valve. No pulmonary valve stenosis. No pulmonary valve regurgitation. Pericardium No pericardial effusion. Aorta Normal size aortic root. CONCLUSIONS 1. Normal left ventricular size, systolic function and wall thickness, with no regional wall motion abnormalities. Left ventricular ejection fraction is estimated at 60 %. Normal diastolic function. 2. Normal right ventricular size and systolic function. 3. No significant valvular abnormality. 4. Normal pulmonary artery pressure. Treasure Zimmerman MD (Electronically Signed) Final Date: 07 February 2020 07:15 S
== END 2020-02-06 10:01 | disposition home or self-care (01) ==
PROVIDERS: PCP Family Medicine; Visit Provider Nurse Practitioner
DX: G45.9 Transient cerebral ischemic attack, unspecified (principal)
CPT/HCPCS: 93306

== ENCOUNTER → 2020-02-07 08:39 | Outpatient (BNVA) | payer BC, SELFPAY | PROVIDERS: PCP Family Medicine; Referring Provider Nurse Practitioner; Visit Provider Nurse Practitioner | DX: R51 Headache (principal); G45.9 Transient cerebral ischemic attack, unspecified | CPT/HCPCS: 36415; 80061; 84443 ==

== ENCOUNTER → 2020-03-27 10:28 | Outpatient (BNVA) | payer BC, SELFPAY | PROVIDERS: PCP Family Medicine; Visit Provider Specialist | DX: Z11.59 Encounter for screening for other viral diseases (principal); Z20.828 Contact with and (suspected) exposure to other viral communicable diseases | CPT/HCPCS: 87635 ==

== ENCOUNTER → 2020-03-30 16:55 | Outpatient (BNVA) | payer BC, SELFPAY | PROVIDERS: PCP Family Medicine; Visit Provider Emergency Medicine | DX: M25.562 Pain in left knee (principal) | CPT/HCPCS: 73562 ==

== ENCOUNTER → 2021-06-02 09:32 | Outpatient (BNVA) | payer OTHER, SELFPAY | PROVIDERS: PCP Family Medicine; Visit Provider Family Medicine | DX: E78.00 Pure hypercholesterolemia, unspecified (principal); I10 Essential (primary) hypertension | CPT/HCPCS: 80053; 80061 ==

== ENCOUNTER 2021-10-28 22:02 | Emergency (ER) | payer OTHER, SELFPAY ==
--- NOTE | 2021-10-28 22:07 | XRR_ITS ---
PROCEDURE INFORMATION: Exam: XR Chest Exam date and time: 10/28/2021 10:15 PM Age: 61 years old Clinical indication: Chest wall pain; Additional info: Cp TECHNIQUE: Imaging protocol: XR of the chest. Views: 1 view. COMPARISON: CR XR chest 1V portable [id number] 01/08/2020 1:00 AM FINDINGS: Lungs: No consolidative pulmonary infiltrates are noted. Pleural spaces: No pleural effusion. No pneumothorax. Heart/Mediastinum: Mild cardiomegaly is noted. Bones/joints: Unremarkable. XR/XR chest 1V portable [id number] IMPRESSION: 1. Mild cardiomegaly is noted. 2. No pulmonary infiltrates are noted. 3. There is no interval change from the prior examination.
--- NOTE | 2021-10-28 22:07 | ECG_ITS ---
[facility] Test Date: 2021-10-28 Pat Name: Octavio Reyes Department: Room: Gender: Male Lithograph Printer: : 1960 Requested By: Brenda Beltran Order Number: [id number] Amarilis MD: Tarik Blue M.D. Measurements Intervals [place] Rate: 58 P: -4 IA: 142 QRS: -12 QRSD: 96 T: -3 QT: 393 QTc: 387 Interpretive Statements SINUS BRADYCARDIA Compared to ECG 01/08/2020 04:04:22 No significant changes Electronically Signed On 10-29-2021 22:34:18 CDT by Tarik Blue M.D. [id number] f
[2021-10-28 22:11] VITALS: BP 117/63; PULSE 60; RESP 17; TEMP 36.7; O2SAT 95; BMI 34.4
--- NOTE | 2021-10-28 22:20 | CTR_ITS ---
PROCEDURE INFORMATION: Exam: CT Head Without Contrast Exam date and time: 10/28/2021 10:57 PM Age: 61 years old Clinical indication: Pain; Patient HX: C/O frontal headache. ; Additional info: PEREZ TECHNIQUE: Imaging protocol: Computed tomography of the head without contrast. Radiation optimization: All CT scans at this facility use at least one of these dose optimization techniques: automated exposure control; mA and/or kV adjustment per patient size (includes targeted exams where dose is matched to clinical indication); or iterative reconstruction. COMPARISON: MR head wo/w con [id number] 01/27/2020 10:45 AM RADIATION DOSE METRICS: Total DLP (mGy-cm): 858.62 FINDINGS: Brain: Unremarkable. No hemorrhage. No significant white matter disease. No edema. Cerebral ventricles: No ventriculomegaly. Paranasal sinuses: Visualized sinuses are unremarkable. No fluid levels. Mastoid air cells: Unremarkable as visualized. No mastoid effusion. Bones/joints: Unremarkable. No acute fracture. Soft tissues: Unremarkable. CT/CT head wo con* [id number] IMPRESSION: 1. No acute intracranial abnormality demonstrated. 2. There is no interval change from the prior examination.
--- NOTE | 2021-10-28 22:21 | ED_ITS ---
HPI - Chest Pain General: Chief Complaint: Headache Stated Complaint: head ache, chest pain, neck pain Time Seen by Provider: 10/28/21 22:07 Source: patient Mode of arrival: ambulatory Limitations: no limitations History of Present Illness: 61-year-old male states that this evening he has been having some chest pain that started around 8 along with a mild headache. States pain in his chest along with upper abdomen he states is a pressure type pain he rates it a 6 out of 10 currently he states that he did have some vomiting and has felt nauseous denies any shortness of breath denies any fevers he denies any worsening improving factors he has not taken any meds. Associated symptoms: Deny abdominal pain, dyspnea, fever(s), nausea or vomiting Review of Systems Const: Denies: fever(s), chills, body aches or change in appetite Eyes: Denies: blurry vision or eye discomfort ENMT: Denies: throat pain or dental pain Card: Reports: chest pain Resp: Denies: dyspnea GI: Denies: abdominal pain, nausea, vomiting or diarrhea : Denies: dysuria Musc: Denies: neck pain or back pain Skin/Breast: Denies: rash Neuro: Reports: headache(s) Psych: Denies: depression Reinier/Lymph: Denies: easy bruising All/Imm: Denies: urticaria PFSH ED PFSH: Medical History COPD (chronic obstructive pulmonary disease) Headache Hypercholesteremia Hypertension Surgical History History of surgical removal of testicle S/P shoulder surgery With bicep reattachment, left Family History Other Cancer Myocardial infarction Social History Smoking and tobacco status: current every day smoker cigars History of recent travel: No Physical Exam Const: COMMON NORMALS: no acute distress, patient oriented x3 and healthy appearing HENMT: COMMON NORMALS: normocephalic and atraumatic HEAD & SCALP: normocephalic and atraumatic Eye: COMMON NORMALS: Equal, round and reactive pupils present and EOMs intact bilaterally PUPIL: Yes Equal, round and reactive pupils present Neck/C-Spine: COMMON NORMALS: full ROM and supple Chest: COMMONS NORMALS: normal inspection of the chest and normal palpation of entire chest wall Resp: COMMON NORMALS: normal respiratory effort, No retractions, No use of accessory muscles and clear to auscultation bilaterally AUSCULTATION: clear to auscultation bilaterally Cardio: COMMON NORMALS: regular rate, regular rhythm and No murmurs present (Cardio) RATE: regular rate RHYTHM: regular rhythm GI: COMMON NORMALS: Normal to inspection, nondistended, normoactive bowel sounds present, Soft to palpation, non-tender and no masses PALPATION: Yes Soft to palpation Extremity: COMMON NORMALS: normal to inspection and full ROM Neuro: COMMON NORMALS: patient oriented x3, moves all extremities and no focal motor deficits Psych: COMMON NORMALS: mental status grossly normal, Normal thought process present and cooperative THOUGHT PROCESS: Normal thought process present Skin: COMMON NORMALS: no rashes or lesions noted and no wounds GENERAL SKIN EXAM: no rashes or lesions noted Course Vital Signs: Vital signs: Vital Signs Temperature 98.1 F 10/28/21 22:11 Pulse Rate 57 L 10/29/21 00:35 Respiratory Rate 19 H 10/29/21 00:35 Blood Pressure 114/64 10/29/21 00:35 Pulse Oximetry 95 10/29/21 00:35 MDM - Chest Pain Medical Decision Making Patient presents for chest pain along with a headache that is atypical in nature. His initial and repeat troponin here negative EKGs are normal he feels improved here he is stable for discharge we will get him cardiology follow-up and he is to return if worsening he understands agrees to plan. Lab Data : 10/28/21 22:22 10/28/21 22:22 Radiology Impressions Chest X-Ray 10/28/21 22:07 IMPRESSION: 1. Mild cardiomegaly is noted. 2. No pulmonary infiltrates are noted. 3. There is no interval change from the prior examination. Head CT 10/28/21 22:20 IMPRESSION: 1. No acute intracranial abnormality demonstrated. 2. There is no interval change from the prior examination. Laboratory Results WBC 11.6 10^3/uL (4.0-10.0) H 10/28/21 22:22 RBC 4.86 10^6/uL (4.1-5.3) 10/28/21 22: Hgb 15.3 g/dL (11.7-16.6) 10/28/21: Hct 44.6 % (42.0-52.0) 10/28/21 22: MCV 91.8 fl (80-94) 10/28/21: MCH 31.5 pg (28.0-34.0) 10/28/21: MCHC 34.3 g/dL (30.0-36.0) 10/28/21: RDW 13.4 % (12.1-15.1) 10/28/21: Plt Count 231 10^3/cmm (130-400) 10/28/21: MPV 9.9 fL (7.4-10.4) 10/28/21: Neut % (Auto) 51.7 % 10/28/21: Lymph % (Auto) 37.4 % 10/28/21: Carlton % (Auto) 7.6 % 10/28/21: Eos % (Auto) 2.2 % 10/28/21: Baso % (Auto) 0.5 % 10/28/21: Neut # (Auto) 6.02 10^3/uL (1.8-7.7) 10/28/21: Lymph # (Auto) 4.4 10^3/uL (0.8-4.8) 10/28/21: Carlton # (Auto) 0.9 10^3/uL (0.2-0.9) 10/28/21: Eos # (Auto) 0.3 10^3/uL (0.0-0.8) 10/28/21: Baso # (Auto) 0.1 10^3/uL (0.0-0.1) 10/28/21: Nucleated RBC % (auto) 0 % 10/28/21: Nucleated RBCs # 0.0 /100WBC 10/28/21 22: Sodium 139 mmol/L (136-145) 10/28/21: Potassium 4.0 mmol/L (3.5-5.1) 10/28/21 22:22 Chloride 104 mmol/L (98-107) 10/28/21 22:22 Carbon Dioxide 23 mmol/L (22-29) 10/28/21 22:22 Anion Gap 16.0 (5-19) 10/28/21 22:22 BUN 12 mg/dL (8-23) 10/28/21 22: Creatinine 0.9 mg/dL (0.7-1.2) 10/28/21 22: GFR Calculation 85.2 mL/min (90-130) L 10/28/21 22: Glucose 100 mg/dL (65-115) 10/28/21 22: Calculated Osmolality 288 mOsm/kg (285-295) 10/28/21: Calcium 9.4 mg/dL (8.5-10.5) 10/28/21 22: Total Bilirubin 0.3 mg/dL (0.15-1.2) 10/28/21 22: AST 15 U/L (0-40) 10/28/21 22: ALT 17 U/L (0-41) 10/28/21 22: Alkaline Phosphatase 84 IU/L (40-130) 10/28/21 22:22 Troponin T Baseline 7 ng/L (0-15) 10/28/21 22: Troponin T 120 Minute 6.14 ng/L (0-15) 10/29/21 00:04 Delta Troponin T -0.86 ABS# (0-10) L 10/29/21 00:04 Total Protein 6.9 g/dL (6.6-8.7) 10/28/21 22: Albumin 4.3 g/dL (3.5-5.2) 10/28/21 22: Globulin 2.6 g/dL (1.3-4.6) 10/28/21 22: Lipase 35 U/L (13-60) 10/28/21 22:22 EKG Data EKG 1: I personally reviewed and interpreted this EKG as follows: EKG interpretation date: 10/28/21 EKG interpretation time: 22:10 Interpretation: sinus brent hr [address] or t wave abnormalities qrs 96 qtc 390 EKG 2: I personally reviewed and interpreted this EKG as follows: EKG interpretation date: 10/28/21 EKG interpretation time: 22:58 Interpretation: sinus brent hr [address] or t wave abnormalities qrs 108 qtc 396 Discharge Plan Discharge Patient Disposition: Home Clinical Impression: Headache Chest pain Qualifiers: Chest pain type: unspecified Qualified Code(s): R07.9 - Chest pain, unspecified Condition: Stable Prescriptions: No Action aspirin [Adult Low Dose Aspirin] 81 mg tablet,delayed release (DR/EC) 81 mg PO DAILY 0RF grape seed extract 100 mg capsule PO 0RF ibuprofen 800 mg tablet 800 mg PO Q8H PRN0RF epinephrine [EpiPen 2-Ubaldo] 0.3 mg/0.3 mL auto-injector 0.3 mg IM Q15M PRN (Reason: anaphylaxis) Qty: 2 0RF Rx Instructions: do not exceed 3 doses per episode lisinopril 20 mg tablet 20 mg PO BID 90 Days Qty: 180 1RF hydralazine 10 mg tablet 10 mg PO Q4H PRN (Reason: hypertension) Qty: 30 1RF Rx Instructions: NEEDED FOR ELEVATED BP >160/>100 amlodipine 5 mg tablet 5 mg PO DAILY 90 Days Qty: 90 1RF sildenafil [Viagra] 50 mg tablet 50 mg PO DAILY PRN (Reason: sexual activity) Qty: 30 0RF Rx Instructions: administer 30 minutes to 4 hours before activity albuterol sulfate [ProAir HFA] 90 mcg/actuation HFA aerosol inhaler 2 puff inhalation QID PRN (Reason: shortness of breath or wheezing) 30 Days Qty: 18 5RF metoprolol tartrate 25 mg tablet See Rx Instructions .ROUTE .COMPLEX 90 Days Qty: 90 1RF Dose Instruction: Take 1/2 (one-half) tablet by mouth twice daily Rx Instructions: Take 1/2 (one-half) tablet by mouth twice daily Discharge Orders: Discharge ED (Routine); Ordered 10/29/21 Ordered By: Brenda Beltran Referrals: Tarik Blue M.D [Physician] - 1-3 days Charito Valentin MD [Primary Care Provider] - Discharge Diet: Advance as tolerated Discharge Activity: Resume usual activity Patient Instructions: Chest Pain (ED) Coding Level of Care Code ED Director Of Materials Management for Chg Fwd Exam Comprehensive
[2021-10-28 22:23] VITALS: BP 117/63; PULSE 58; RESP 17; O2SAT 98
[2021-10-28 22:25] VITALS: RESP 18; O2SAT 97
[2021-10-28] MEDS: morphine 4 mg/mL SDV 1 mL IVP (22:25)
[2021-10-28] MEDS: ondansetron 2 mg/ML SDV 2 mL 4 MG IVP (22:25)
[2021-10-28 22:28] LABS: Basophils # 0.1 10^3/uL (0.0-0.1); Basophils % 0.5 %; Eosinophils # 0.3 10^3/uL (0.0-0.8); Eosinophils % 2.2 %; Hematocrit 44.6 % (42.0-52.0); Hemoglobin 15.3 g/dL (11.7-16.6); Lymphocytes # 4.4 10^3/uL (0.8-4.8); Lymphocytes % 37.4 %; Mean Corpuscular HGB Conc 34.3 g/dL (30.0-36.0); Mean Corpuscular Hemoglobin 31.5 pg (28.0-34.0); Mean Corpuscular Volume 91.8 fl (80-94); Mean Platelet Volume 9.9 fL (7.4-10.4); Monocytes # 0.9 10^3/uL (0.2-0.9); Monocytes % 7.6 %; Neutrophils # 6.02 10^3/uL (1.8-7.7); Neutrophils % 51.7 %; Nucleated Red Blood Cells % 0 %; Platelet Count 231 10^3/cmm (130-400); Red Blood Count 4.86 10^6/uL (4.1-5.3); Red Cell Distribution Width 13.4 % (12.1-15.1); White Blood Count 11.6 10^3/uL (4.0-10.0)
[2021-10-28 22:50] LABS: Alanine Aminotransferase 17 U/L (0-41); Albumin Level 4.3 g/dL (3.5-5.2); Alkaline Phosphatase 84 IU/L (40-130); Aspartate Amino Transferase 15 U/L (0-40); Blood Urea Nitrogen 12 mg/dL (8-23); Calcium 9.4 mg/dL (8.5-10.5); Carbon Dioxide 23 mmol/L (22-29); Chloride 104 mmol/L (98-107); Globulin 2.6 g/dL (1.3-4.6); Glomerular Filtration Rate 85.2 mL/min (90-130); Glucose 100 mg/dL (65-115); Lipase 35 U/L (13-60); Osmolality Calculated 288 mOsm/kg (285-295); Sodium 139 mmol/L (136-145); Total Bilirubin 0.3 mg/dL (0.15-1.2); Total Protein 6.9 g/dL (6.6-8.7)
[2021-10-28 22:53] LABS: Troponin(5th) Baseline 7 ng/L (0-15)
[2021-10-28 22:57] LABS: Slide Review Slide Review Perform
[2021-10-28 23:03] VITALS: BP 117/63; PULSE 56; RESP 17; O2SAT 98
[2021-10-28 23:30] VITALS: BP 102/57; BP 117/63; PULSE 50; PULSE 51; RESP 16; RESP 18; O2SAT 97
--- NOTE | 2021-10-29 00:07 | ECG_ITS ---
[facility] Test Date: 2021-10-28 Pat Name: Octavio Reyes Department: Room: Gender: Male Speech Language Pathologist Assistant: : 1960 Requested By: Brenda Beltran Order Number: [id number] Amarilis MD: Tarik Blue M.D. Measurements Intervals Cast[place]er Rate: 48 P: 44 WV: 162 QRS: -10 QRSD: 108 T: -13 QT: 428 QTc: 386 Interpretive Statements SINUS BRADYCARDIA Compared to ECG 10/28/2021 22:10:08 No significant changes Electronically Signed On 10-29-2021 22:38:47 CDT by Tarik Blue M.D. [email or web address] [facility] [id number]
[2021-10-29 00:28] LABS: Troponin 5 2HR 6.14 ng/L (0-15)
[2021-10-29 00:34] LABS: Troponin 5 2HR Delta -0.86 ABS# (0-10)
[2021-10-29 00:35] VITALS: BP 114/64; PULSE 54; PULSE 57; RESP 18; RESP 19; O2SAT 94; O2SAT 95
[2021-10-29 01:03] VITALS: BP 124/60; PULSE 54; RESP 20; TEMP 36.6; O2SAT 97
[2021-10-29 01:05] VITALS: BP 124/60; PULSE 54; RESP 20; TEMP 36.6; O2SAT 97
--- NOTE | 2021-10-29 07:28 | DCPLANNER ---
Addendum entered by Leah Salinas 11/15/21 07:16: Patient had an appointment scheduled for 11.05.21 with [facility] - patient did attend appointment. Addendum entered by Leah Salinas 11/05/21 07:11: Patient has a follow up appointment scheduled for Friday, November 05, 2021 at 9:[address] Ivory at [facility]. Clinic will call patient with appointment information. Original Note: forest logistics manager had message to schedule a follow up appointment for patient with cardiology. forest logistics manager sent patients information to the front office staff at [facility]. Patients information will be printed and reviewed. Clinic will call patient with appointment information.
== END 2021-10-29 01:07 | disposition home or self-care (01) ==
PROVIDERS: Emergency Provider Emergency Medicine; PCP Family Medicine
DX: R51.9 Headache, unspecified (principal); R07.9 Chest pain, unspecified; I10 Essential (primary) hypertension; F17.290 Nicotine dependence, other tobacco product, uncomplicated; Z79.82 Long term (current) use of aspirin
CPT/HCPCS: 70450; 71045; 80053; 83690; 84484; 85025; 93005; 96374; 96375; 99285; J2270; J2405

== ENCOUNTER → 2023-02-01 08:56 | Outpatient (BNVA) | payer MEDICARE, SELFPAY | PROVIDERS: PCP Family Medicine; Visit Provider Family Medicine | DX: I10 Essential (primary) hypertension (principal); E78.00 Pure hypercholesterolemia, unspecified | CPT/HCPCS: 80053; 80061 ==

== ENCOUNTER → 2023-12-04 16:02 | Outpatient (BNVA) | payer MEDICARE, SELFPAY | PROVIDERS: PCP Family Medicine; Referring Provider Nurse Practitioner; Visit Provider Nurse Practitioner | DX: M25.532 Pain in left wrist (principal) | CPT/HCPCS: 73110 ==

== ENCOUNTER → 2024-02-29 08:51 | Outpatient (BNVA) | payer MEDICARE, SELFPAY | PROVIDERS: PCP Family Medicine; Visit Provider Family Medicine | DX: I10 Essential (primary) hypertension (principal) | CPT/HCPCS: 80053; 80061 ==

== ENCOUNTER 2024-05-25 15:19 | Emergency (ER) | payer MEDICARE, SELFPAY ==
[2024-05-25 15:25] VITALS: BP 129/68; PULSE 81; RESP 16; TEMP 37.2; O2SAT 99; BMI 29.5
--- NOTE | 2024-05-25 15:32 | XRR_ITS ---
PROCEDURE INFORMATION: Exam: XR Chest Exam date and time: 05/25/2024 3:52 PM Age: 64 years old Clinical indication: Fever TECHNIQUE: Imaging protocol: Radiologic exam of the chest. Views: 1 view. COMPARISON: CR XR chest 1V portable [id number] 10/28/2021 10:15 PM FINDINGS: Lungs: Unremarkable. No consolidation. Pleural spaces: Unremarkable. No pleural effusion. No pneumothorax. Heart/Mediastinum: Stable borderline cardiomegaly . Bones/joints: Unremarkable. XR/XR chest 1V portable [id number] IMPRESSION: 1. No focal consolidation. Borderline cardiomegaly. 2. No significant radiographic change from prior imaging including 10/28/2021 and 01/08/2020.
--- NOTE | 2024-05-25 15:54 | ED_ITS ---
HPI - URI/Sore Throat General: Chief Complaint: Upper Respiratory Infection Stated Complaint: body aches Time Seen by Provider: 05/25/24 15:50 Source: patient Mode of arrival: ambulatory Limitations: no limitations History of Present Illness: 64-year-old male who states that over th e last day has been having cough some congestion states he has been having bodyaches as well. He states he believes he may have the flu he states he had some sick contacts he denies any vomiting denies diarrhea he denies any respiratory distress or shortness of breath. Associated symptoms: Reports chills; Deny abdominal pain, chest pain, diarrhea, fever(s), headache(s), nausea or vomiting Related Data Home Medications Medication Instructions Recorded Confirmed aspirin 81 mg tablet,delayed 81 mg PO DAILY 07/10/19 02/29/24 release (Adult Low Dose Aspirin) grape seed extract 100 mg capsule mg PO 07/10/19 02/29/24 curamin PO 11/05/21 02/29/24 Previous Rx's Medication Instructions Recorded hydralazine 10 mg tablet 10 mg PO Q4H PRN hypertension #30 06/02/21 tabs sildenafil 50 mg tablet (Viagra) 50 mg PO DAILY PRN sexual activity 06/02/21 #30 tabs albuterol sulfate 90 mcg/actuation 2 puff inhalation QID PRN 02/01/23 aerosol inhaler (ProAir HFA) shortness of breath or wheezing 30 days #18 grams epinephrine 0.3 mg/0.3 mL 0.3 mg (0.3 mL) IM Q15M PRN 02/01/23 injection, auto-injector (EpiPen anaphylaxis #2 ea 2-Ubaldo) amlodipine 5 mg tablet 5 mg PO DAILY 90 days #90 tabs 02/29/24 lisinopril 20 mg tablet 20 mg PO BID 90 days #180 tabs 02/29/24 meloxicam 15 mg tablet 15 mg PO DAILY 90 days #90 tabs 02/29/24 metoprolol tartrate 25 mg tablet 12.5 mg (1/2 x 25 mg) PO BID 90 02/29/24 days #90 tabs oseltamivir 75 mg capsule (Tamiflu) 75 mg PO BID 5 days #10 caps 05/25/24 Allergies Allergy/AdvReac Type Severity Reaction Status Date / Time Penicillins Allergy Unknown Verified 05/25/24 15:27 Review of Systems Const: Reports: chills and body aches; Denies: fever(s) or change in appetite ENMT: Denies: throat pain or dental pain Card: Denies: chest pain Resp: Reports: non-productive cough; Denies: dyspnea GI: Denies: abdominal pain, nausea, vomiting or diarrhea : Denies: dysuria Musc: Denies: neck pain or back pain Skin/Breast: Denies: rash Neuro: Denies: headache(s) PFSH ED PFSH: Medical History COPD (chronic obstructive pulmonary disease) Headache Hypercholesteremia Hypertension Surgical History History of surgical removal of testicle S/P shoulder surgery With bicep reattachment, left Family History Other Cancer Myocardial infarction Social History Smoking and tobacco/nicotine status: current every day tobacco/nicotine user cigars Substance/Drug Use: never Physical Exam Const: COMMON NORMALS: no acute distress, patient oriented x3 and healthy appearing HENMT: COMMON NORMALS: normocephalic and atraumatic HEAD & SCALP: normocephalic and atraumatic THROAT: posterior oropharynx normal Eye: COMMON NORMALS: conjunctivae normal CONJUNCTIVA: Yes conjunctivae normal Neck/C-Spine: COMMON NORMALS: full ROM and supple Chest: COMMONS NORMALS: normal inspection of the chest Resp: COMMON NORMALS: normal respiratory effort, No retractions, No use of accessory muscles and clear to auscultation bilaterally AUSCULTATION: clear to auscultation bilaterally Cardio: COMMON NORMALS: regular rate, regular rhythm and No murmurs present (Cardio) RATE: regular rate RHYTHM: regular rhythm Extremity: COMMON NORMALS: normal to inspection and full ROM Neuro: COMMON NORMALS: patient oriented x3, moves all extremities and no focal motor deficits Psych: COMMON NORMALS: mental status grossly normal, Normal thought process present and cooperative THOUGHT PROCESS: Normal thought process present Skin: COMMON NORMALS: no rashes or lesions noted and no wounds GENERAL SKIN EXAM: no rashes or lesions noted Course Vital Signs: Vital signs: Vital Signs Temperature 99.0 F 05/25/24 15:25 Pulse Rate 81 05/25/24 15:25 Respiratory Rate 16 05/25/24 15:25 Blood Pressure 129/68 05/25/24 15:25 Pulse Oximetry 99 05/25/24 15:25 Oxygen Delivery Me thod Room Air 05/25/24 15:25 MDM - URI/Sore Throat Medical Decision Making Patient presents here with cough congestion body aches did test positive for influenza likely causing his symptoms we will start him on Tamiflu he is otherwise well-appearing here no signs pneumonia he stable for discharge follow- up with PCP return if worsening. Medical Records I reviewed the patient's medical records. Lab Data I reviewed the patient's lab results. Laboratory Results Coronavirus (PCR) Negative (Negative) 05/25/24 15:29 Influenza A (PCR) Positive (Negative) 05/25/24 15:29 Influenza Type B (PCR) Negative (Negative) 05/25/24 15:29 RSV (PCR) Negative (Negative) 05/25/24 15:29 No radiology studies performed this visit Discharge Plan Discharge Patient Disposition: Home Clinical Impression: Influenza Condition: Stable Prescriptions: New oseltamivir [Tamiflu] 75 mg capsule 75 mg PO BID 5 Days Qty: 10 0RF No Action aspirin [Adult Low Dose Aspirin] 81 mg tablet,delayed release (DR/EC) 81 mg PO DAILY grape seed extract 100 mg capsule PO hydralazine 10 mg tablet 10 mg PO Q4H PRN (Reason: hypertension) Qty: 30 1RF Rx Instructions: NEEDED FOR ELEVATED BP >160/>100 sildenafil [Viagra] 50 mg tablet 50 mg PO DAILY PRN (Reason: sexual activity) Qty: 30 0RF Rx Instructions: administer 30 minutes to 4 hours before activity albuterol sulfate [ProAir HFA] 90 mcg/actuation HFA aerosol inhaler 2 puff inhalation QID PRN (Reason: shortness of breath or wheezing) 30 Days Qty: 18 5RF epinephrine [EpiPen 2-Ubaldo] 0.3 mg/0.3 mL auto-injector 0.3 mg IM Q15M PRN (Reason: anaphylaxis) Qty: 2 0RF Rx Instructions: do not exceed 3 doses per episode meloxicam 15 mg tablet 15 mg PO DAILY 90 Days Qty: 90 3RF metoprolol tartrate 25 mg tablet 12.5 mg PO BID 90 Days Qty: 90 3RF lisinopril 20 mg tablet 20 mg PO BID 90 Days Qty: 180 3RF amlodipine 5 mg tablet 5 mg PO DAILY 90 Days Qty: 90 3RF curamin PO Discharge Orders: Discharge ED (Routine); Ordered 05/25/24 Ordered By: Brenda Beltran Referrals: Charito Valentin MD [Primary Care Provider] - 4-7 days Discharge Diet: Advance as tolerated Discharge Activity: Resume usual activity Patient Instructions: Influenza (ED) Coding Level of Care Code ED Tanning Solution Maker for Demarco Bryant
[2024-05-25 16:19] LABS: Covid PCR NEGATIVE (Negative); Influenza A POSITIVE (Negative); Influenza B NEGATIVE (Negative); Respiratory Syncytial Virus Ce NEGATIVE (Negative)
[2024-05-25 16:38] VITALS: PULSE 85; O2SAT 99
== END 2024-05-25 16:39 | disposition home or self-care (01) ==
PROVIDERS: Emergency Provider Emergency Medicine; PCP Family Medicine
DX: J10.1 Influenza due to other identified influenza virus with other respiratory manifestations (principal); Z11.52 Encounter for screening for COVID-19; Z79.82 Long term (current) use of aspirin; F17.290 Nicotine dependence, other tobacco product, uncomplicated; J44.9 Chronic obstructive pulmonary disease, unspecified; I10 Essential (primary) hypertension
CPT/HCPCS: 71045; 87637; 99284

== ENCOUNTER → 2024-10-10 09:52 | Outpatient (BNVA) | payer MEDICARE, SELFPAY | PROVIDERS: PCP Family Medicine; Visit Provider Nurse Practitioner Family | DX: L23.9 Allergic contact dermatitis, unspecified cause (principal); L57.8 Other skin changes due to chronic exposure to nonionizing radiation; L81.4 Other melanin hyperpigmentation; D22.5 Melanocytic nevi of trunk; L30.0 Nummular dermatitis | CPT/HCPCS: 17000; 99203 ==

== ENCOUNTER → 2024-11-20 09:43 | Outpatient (BNVA) | payer MEDICARE, SELFPAY | PROVIDERS: PCP Family Medicine; Visit Provider Nurse Practitioner Family | DX: L30.0 Nummular dermatitis (principal); L23.9 Allergic contact dermatitis, unspecified cause; L57.8 Other skin changes due to chronic exposure to nonionizing radiation; L81.4 Other melanin hyperpigmentation; D22.5 Melanocytic nevi of trunk | CPT/HCPCS: 99213 ==

== ENCOUNTER → 2025-05-01 08:36 | Outpatient (BNVA) | payer MEDICARE, SELFPAY | PROVIDERS: PCP Family Medicine; Visit Provider Family Medicine | DX: I10 Essential (primary) hypertension (principal); E78.00 Pure hypercholesterolemia, unspecified | CPT/HCPCS: 80048; 80061 ==